=== PATIENT | male | born 1930 | race Caucasian/White ===

== ENCOUNTER 2016-06-11 15:47 | Emergency (ER) | payer MEDICARE, OTHER ==
--- NOTE | ~2016-06-11 | ENPV ---
Vascular Lower Extremities DVT Study Procedure Demographics Patient Name MERI ROMAN Date of Study 06/11/2016 Patient Number [id number] Gender Male Date of 1930 Age 85 Visit Number [id number] Height Accession Number [id number] Weight Room Number BSA BMI Referring Marquez Ford Interpreting Tip Senior MD Physician Physician Physician Ordering Physician Marquez Villasenor MD Division Chief Ginner Helper Guerda Echavarria [facility] Conclusions Summary No evidence of deep vein thrombosis or superficial thrombophlebitis in the right lower extremity . Procedure Type of Study: Veins:Lower Extremities DVT Study, Lower Extremity Right. Indications for Study:Pain in Limb and Swelling of Limb. Appropriate Use Criteria:9 Allergies - Sulfa. - Other:(Celebrex). - Penicillin. - Penicillin. - Sulfa. - Other:(Celecoxib). Patient Status:STAT. Study Location:ER. Technical Quality:Adequate visualization. Velocities are measured in cm/s ; Diameters are measured in cm Right Lower Extremities DVT Study Measurements Right 2D and Doppler Measurements + + + + +------+------+ + !Location !Visualized!Compressibility!Thrombosis!Signal!Reflux!Reflux ! ! ! ! ! ! ! !(sec) ! + + + + +------+------+ + !GSV Thigh !Yes !Yes !None !Phasic! ! ! + + + + +------+------+ + !Common !Yes !Yes !None !Phasic! ! ! !Femoral ! ! ! ! ! ! ! + + + + +------+------+ + !Prox !Yes !Yes !None !Phasic! ! ! !Femoral ! ! ! ! ! ! ! + + + + +------+------+ + !Mid Femoral!Yes !Yes !None !Phasic! ! ! + + + + +------+------+ + !Dist !Yes !Yes !None !Phasic! ! ! !Femoral ! ! ! ! ! ! ! + + + + +------+------+ + !Popliteal !Yes !Yes !None !Phasic! ! ! + + + + +------+------+ + !Gastroc !Yes !Yes !None !Phasic! ! ! + + + + +------+------+ + !PTV !Yes !Yes !None !Phasic! ! ! + + + + +------+------+ + !Peroneal !Yes !Yes !None !Phasic! ! ! + + + + +------+------+ + Left Lower Extremities DVT Study Measurements Left 2D and Doppler Measurements + + + + +------+------+ + !Location !Visualized!Compressibility!Thrombosis!Signal!Reflux!Reflux ! ! ! ! ! ! ! !(sec) ! + + + + +------+------+ + !Common !Yes !Yes !None !Phasic! ! ! !Femoral ! ! ! ! ! ! ! + + + + +------+------+ + Signature dtt: MEHDI PARIKH: 06/11/16 1658 Physician Self Edit
--- NOTE | ~2016-06-11 | ER ---
PATIENT'S NAME: MERI ROMAN [facility] AGE: 85 Y [address] ROOM: [place] [address] LOCATION: [facility] ADMIT DATE: 06/11/2016 ER/Outpatient Report DISCHARGE DATE: 06/11/2016 FAMILY PHYSICIAN: Hector Vargas MD ATTENDING PHYSICIAN: Jacklyn Delatorre TIME OF ARRIVAL: 1547 hours. TIME SEEN: 1604 hours. IDENTIFICATION: An 85-year-old male. CHIEF COMPLAINT: Right leg pain. HISTORY OF PRESENT ILLNESS: The patient complains of right leg pain that he has had for the last 2 days. Last night, he had difficulty sleeping, secondary to the pain. He has been taking Tylenol routinely since yesterday with no relief. They were in town today for his 's appointment and decided to come in here and get things checked out. No fall or injury, but he has had previous blood clots in that leg with some it sounds like complications. He is on Xarelto and takes that regularly. He was in the [place] [facility] a while in [place] and has been home since around the of the year. In October, he had right lower extremity cellulitis and had been discharged on daptomycin. 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 He had acute kidney injury, secondary to urinary retention, hemarthrosis, and elevated CPK. He has a history of congestive heart failure. No significant increased lower extremity edema, but he has a little bit of increased edema in that leg. He has pain he said from the knee to the foot. No fever or chills. No other systemic symptoms. No chest pain. No cough or shortness of breath. ALLERGIES: PENICILLIN, CELEBREX, AND SULFA. CURRENT MEDICATIONS: He said he has the same medicines he had when he had outpatient surgery in April with Dr. Whitley for chronic urinary retention. He had a suprapubic catheter placed. He is on: 1. Mirtazapine 30 mg at h.s. 2. CPAP at h.s. 3. O2 at h.s. PATIENT'S NAME: MERI ROMAN [facility] AGE: 85 Y [address] ROOM: [place] [address] LOCATION: ED ADMIT DATE: 06/11/2016 ER/Outpatient Report DISCHARGE DATE: 06/11/2016 FAMILY PHYSICIAN: Hector Vargas MD ATTENDING PHYSICIAN: Jacklyn Delatorre 4. Acetaminophen p.r.n. 650 mg, he took 650 mg at approximately 1 p.m. today. 5. Carvedilol 6.25 mg b.i.d. 6. Furosemide 40 mg daily. 7. Milk of magnesia p.r.n. 8. Multivitamin twice daily. 9. Lisinopril 2.5 mg q.a.m. 10. Pantoprazole 40 mg q.a.m. 11. Allopurinol 100 mg q.a.m. 12. Xarelto 20 mg daily. 13. Bupropion 150 mg q.a.m. 14. Vitamin D3 2000 international units daily. 15. BuSpar 15 mg b.i.d. 16. Levothyroxine 50 mcg daily. 17. He had enoxaparin and hydrocodone on his med list, but he is not currently taking those. MEDICAL PROBLEMS: The patient really denied any other than the DVT; although, records reflect a history of coronary artery disease, CHF, AFib, history of DVT, on chronic anticoagulation, chronic urinary retention, status post suprapubic catheter in April per Dr. Whitley, chronic edema, COPD, obstructive sleep apnea, hypertension, hyperlipidemia, chronic diarrhea, degenerative joint disease, depression, bradycardia, status post pacemaker. PRIOR SURGERIES: Cardiac cath, bilateral total knee arthroplasties, and pacemaker. FAMILY HISTORY: No pertinent family history identified. SOCIAL HISTORY: The patient was has been in a [place] [facility] for a while, but currently is back home. He is and has children. Tobacco use, denies. Alcohol use, denies. Drug use, denies. REVIEW OF SYSTEMS: All systems reviewed negative other than what is noted in the HPI. PHYSICAL EXAMINATION: VITAL SIGNS: Height 5 feet, 11 inches and weight 93.2 kg. Blood pressure 128/71, pulse 79, respiration 19, temp 97.3, and sats 97%. GENERAL: An 85-year-old male in no acute distress. HEENT: Head: Normocephalic, atraumatic. Ears: TMs translucent both ears. Nose: Mucosa pink. No lesions. Mouth: No lesions. Pharynx benign. PATIENT'S NAME: MERI ROMAN [facility] AGE: 85 Y [address] ROOM: [place] [address] LOCATION: ED ADMIT DATE: 06/11/2016 ER/Outpatient Report DISCHARGE DATE: 06/11/2016 FAMILY PHYSICIAN: Hector Vargas MD ATTENDING PHYSICIAN: Jacklyn Delatorre NECK: Supple. No lymphadenopathy. LUNGS: Clear to auscultation. Breath sounds are equal. HEART: Regular rate and rhythm. ABDOMEN: Soft, nondistended, nontender. SKIN: [place], warm, and dry. No lesions or rashes noted. NEURO: No focal deficit. EXTREMITIES: The patient is tender in the right lower extremity more in the calf region. There are no erythema and no warmth. He does have a scar from previous wound on the right lower extremity. He has 1+ edema. LABORATORY DATA: Dopplers negative for DVT. Hemoglobin 13.3, hematocrit 39.2, platelets 213, white count 11.6 with 59% neutrophils, 25% lymphocytes. INR 1.2. Sodium 144, potassium 3.9, chloride 109, CO2 21, BUN 25, creatinine 1.8, which is up a little bit from previous creatinine, but his creatinine has varied from 1.5 to 2, most recent was 1.5 on May 18. Blood sugar is 98. Liver enzymes are normal. CRP less than 0.29. INR 1.2. X-ray of his right lower extremity negative for acute process pending Radiology over-read. IMPRESSION: Right leg pain and elevated creatinine. PLAN: Ice and/or heat. [place] 5/325 1 p.o. given here 1 p.o. q.4-6 h. p.r.n. pain, dispensed 15 with 0 refills. Follow up with Dr. Vargas in 1 day. Follow up sooner if any problems or concerns. Return to the ER if increase in pain, redness, fever, chills, or problems. The patient and his family understand and agree and all questions have been answered. JACKLYN DELATORRE MD CAR/modl /[id number] d: 06/11/16 2336 t: 06/12/16 1541, OUTPATIENT REPORT
[~2016-06-11 15:47] MED LIST: BUSPIRONE HCL15 MG PO; CARVEDILOL3.125 MG PO; COREG6.25 MG PO; COUMADIN ** IA5 MG PO; COUMADIN **IA10 MG; CPAP; CUBICIN (NON-F500 MG IV; FISH OIL1000 MG PO; FLOMAX0.4 MG PO; FLORASTOR250 MG PO; LASIX20 MG PO; LASIX40 MG PO; LEVOTHROID (SY50 MCG PO; LEXAPRO20 MG PO; LOVENOX 3030 MG/0.3 SUB-Q; LOVENOX 6060 MG/0.6 SUB-Q; MILK OF MA400 MG/5 M PO; MIRTAZAPINE30 MG PO; NORCO 5-325 TA1 EACH PO; NYSTATIN1 EAC7 TOP; OMNICEF 300MG300 MG PO; OXYGEN M-15 INH; PERCOCET 5-3251 EACH PO; PRESERVISION A1 EAC2 PO; PRINIVIL (ZESTRI5 MG PO; PROTONIX40 MG PO; RISPERDAL2 MG PO; THERAGRAN-M1 TAB PO; TYLENOL325 MG PO; VITAMIN D-32000 UNI1 PO; WELLBUTRIN SR150 MG PO; XARELTO20 MG PO; ZESTRIL2.5 MG PO; ZOCOR10 MG PO; ZOCOR20 MG PO; ZYLOPRIM100 MG PO
[2016-06-11 16:29] LABS: BASOPHIL # 0.1 K/uL (0.0-0.2); BASOPHIL % 0.4 %; EOSINOPHIL # 0.4 K/uL (0.0-0.5); EOSINOPHIL % 3.6 %; HEMATOCRIT 39.2 % (33.0-50.0); HEMOGLOBIN 13.3 g/dL (11.0-16.0); IMMATURE GRANULOCYTE # 0.2 K/uL (0.0-0.3); IMMATURE GRANULOCYTE % 1.3 %; LYMPHOCYTE # 2.9 K/uL (0.8-4.0); MCH 32.7 pg (27.0-34.0); MCHC 33.9 gm/dL (32.0-36.5); MCV 96.3 fl (83.0-98.0); MONOCYTE # 1.2 K/uL (0.0-1.0); MONOCYTE % 10.1 %; MPV 11.4 fl (9.4-12.4); NEUTROPHIL # (ANC) 6.9 K/uL (1.4-9.0); NEUTROPHIL % 59.6 %; NRBC % 0 /100WBC (0-0.00); PLATELET COUNT 213 K/uL (150-450); RBC 4.07 M/uL (3.50-5.50); RDW-CV 16.5 % (11.9-14.6); WBC 11.6 K/uL (4.0-11.0)
[2016-06-11 16:39] LABS: INR - (THERAPEUTIC) 1.2 (0.9-1.1); PROTIME 12.3 SECONDS (9.6-11.1); PTT 30 SECONDS (25-32)
[2016-06-11 16:46] LABS: ALBUMIN 3.4 gm/dL (3.5-5.0); ALK PHOS 65 IU/L (33-138); ALT 18 IU/L (12-78); ANION GAP 17.9 (10.0-19.0); AST 19 IU/L (10-40); BLOOD UREA NITROGEN 25 mg/dL (6-24); CALCIUM 9.3 mg/dL (8.5-10.5); CHLORIDE 109 mMol/L (96-110); CO2 21 mMol/L (22-32); CREATININE 1.8 mg/dL (0.6-1.3); ESTIMATED GFR (MDRD EQUATION) 36; POTASSIUM 3.9 mMol/L (3.7-5.1); SODIUM 144 mMol/L (135-145); TOTAL PROTEIN 6.6 g/dL (6.0-8.4)
[2016-06-11 16:50] LABS: TOTAL BILIRUBIN 0.4 mg/dL (0.0-1.5)
== END 2016-06-11 18:40 | disposition disaster alternative care site (69) ==
LOC: GMED 15:47
PROVIDERS: Family Medicine
DX: M79.604 Pain in right leg (principal); R79.89 Other specified abnormal findings of blood chemistry; I11.0 Hypertensive heart disease with heart failure; I50.9 Heart failure, unspecified; I48.91 Unspecified atrial fibrillation; J44.9 Chronic obstructive pulmonary disease, unspecified; E78.5 Hyperlipidemia, unspecified; Z95.0 Presence of cardiac pacemaker; F32.9 Major depressive disorder, single episode, unspecified; Z88.0 Allergy status to penicillin; Z88.2 Allergy status to sulfonamides; Z88.8 Allergy status to other drugs, medicaments and biological substances; Z79.899 Other long term (current) drug therapy

== ENCOUNTER → 2016-06-25 | Outpatient (CLI) | payer MEDICARE, OTHER | END | disposition disaster alternative care site (69) | LOC: LNHI 18:13 | DX: I42.8 Other cardiomyopathies (principal) ==